=== PATIENT | female | born 1940 | race African-American/Black ===

== ENCOUNTER 2022-09-06 14:34 | Emergency (ER) | payer MEDICARE ==
[~2022-09-06] VITALS: Ht 162.6 cm; Wt 114.0 kg
[~2022-09-06 14:34] MED LIST: AMLO2.5T45 PO; CIPR-264 PO; FLUT9.9S NS; HYDR12.529 PO; HYDRAPAP PO; MELO-106 PO; METF500T PO; OLME40TA11 PO; PREG150C PO; TIZA-204 PO
[2022-09-06 14:43] VITALS: O2SAT 98
[2022-09-06 15:11] LABS: BASOPHILS % 0.4 % (0.0-2.0); EOSINOPHILS % 1.4 % (0.0-5.0); HEMOGLOBIN. 11.4 g/dL (12.0-16.0); LYMPHOCYTES % 14.9 % (20.0-50.0); MEAN CORPUSCULAR HEMOGLOBIN 26.9 pg (28.0-32.0); MEAN CORPUSCULAR VOLUME 82.4 fL (81.0-99.0); MONOCYTES % 9.1 % (2.0-8.0); NEUTROPHILS % 74.2 % (40.0-76.0); PLATELET 230 x1000/uL (130-400); RED BLOOD CELL COUNT 4.24 mill/uL (4.2-5.4); RED CELL DISTRIBUTION WIDTH 16.9 % (11.6-14.6)
[2022-09-06 15:16] LABS: CHLORIDE 106 mEq/L (98-107)
[2022-09-06 15:20] LABS: PROTHROMBIN TIME 10.3 sec (9.6-11.0)
[2022-09-06 16:40] VITALS: BP 129/67; PULSE 98; RESP 15; TEMP 98.6
[2022-09-06 16:58] LABS: CLARITY URINE CLEAR (CLEAR); COLOR URINE YELLOW (YELLOW); KETONES URINE NEGATIVE (NEGATIVE); LEUKOCYTE ESTERASE URINE NEGATIVE (NEGATIVE); NITRITE URINE NEGATIVE (NEGATIVE); OCCULT BLOOD URINE NEGATIVE (NEGATIVE); PROTEIN URINE TRACE (NEGATIVE); SPECIFIC GRAVITY URINE 1.014 (1.005-1.030); UROBILINOGEN URINE 0.2 E.U./dL (0.2-1.0)
== END 2022-09-06 18:36 | disposition home or self-care (01) ==
LOC: ER 14:34
DX: M79.10 Myalgia, unspecified site (principal); M25.551 Pain in right hip; W18.39XA Other fall on same level, initial encounter; Y93.89 Activity, other specified; Y92.89 Other specified places as the place of occurrence of the external cause; Y99.8 Other external cause status; E11.9 Type 2 diabetes mellitus without complications; I10 Essential (primary) hypertension; Z79.899 Other long term (current) drug therapy
CPT/HCPCS: 36415; 71045; 73070; 73502; 80053; 81003; 84484; 85025; 93005; 99285